=== PATIENT | female | born 1950 | race Caucasian/White ===

== ENCOUNTER → 2016-10-14 | Outpatient (CLI) | payer MEDICARE ==
--- NOTE | 2016-10-14 11:26 | REPMRS ---
Patient History The patient states she had a clinical breast exam in 09/2016. Patient had first child at age 35. Family history of ovarian cancer in maternal aunt at age 50 or over, pancreatic cancer in maternal aunt, breast cancer in paternal grandmother at age 50 or over, and ovarian cancer in paternal cousin at age 50 or over. Benign lumpectomy of the right breast, 1998. Digital Woman Screen Mammo: October 14, 2016 - Exam #: [id number] Bilateral CC and MLO view(s) were taken. Technologist: Ilene Lou, Technologist Prior study comparison: March 07, 2015, digital woman screen mammo performed at [facility]. March 28, 2014, digital woman screen mammo performed at [facility]. March 27, 2013, digital woman screen mammo performed at [facility]. FINDINGS: There are scattered fibroglandular densities. There is a moderate amount of residual fibroglandular tissue which is fairly symmetric. There is no interval development of dominant mass, architectural distortion, or clustered microcalcification typical of malignancy. There has been no change in the appearance of the mammogram from the prior studies. ASSESSMENT: BI-RADS/ACR category 1 mammogram. Negative. Recommendation Routine screening mammogram of both breasts in 1 year (for women over age 40). This mammogram was interpreted with the aid of an FDA-approved computer-aided dectection system. Electronically Signed By: Julio Dueñas MD 10/14/16 1126
== END ==
LOC: M WHC 10:04
PROVIDERS: ATTEND Nurse Practitioner Family
DX: Z01.419 Encounter for gynecological examination (general) (routine) without abnormal findings (principal); Z12.31 Encounter for screening mammogram for malignant neoplasm of breast; Z12.12 Encounter for screening for malignant neoplasm of rectum; Z92.89 Personal history of other medical treatment
CPT/HCPCS: 82270; G0101; G0202

== ENCOUNTER → 2017-01-06 | Outpatient (REF) | payer MEDICARE | LOC: M LAB REF 16:33 | PROVIDERS: ATTEND Physician Assistant | DX: R30.0 Dysuria (principal) ==

== ENCOUNTER → 2017-12-11 | Outpatient (REF) | payer MEDICARE ==
[2017-12-11 17:53] LABS: APPEARANCE, URINE CLEAR (CLEAR); BACTERIA, URINE AUTO 1+ (NEGATIVE); BILIRUBIN, URINE AUTO NEGATIVE (NEGATIVE); BLOOD, URINE BLOOD 2+ (NEGATIVE); COLOR, URINE STRAW (YELLOW); GLUCOSE, URINE (UA) AUTO NEGATIVE (NEGATIVE); KETONE, URINE AUTO NEGATIVE (NEGATIVE); LEUKOCYTE ESTERASE, URINE AUTO 3+ (NEGATIVE); NITRITE, URINE AUTO NEGATIVE (NEGATIVE); PROTEIN, URINE AUTO NEGATIVE (NEGATIVE); RBC, URINE AUTO 2 /HPF (0-3); SPECIFIC GRAVITY URINE AUTO 1.003 (1.002-1.035); SQUAMOUS EPITHELIAL CELL UR AU 0 /HPF (0-6); UROBILINOGEN, URINE AUTO 0.2 mg/dL (0.0-2.0); WBC, URINE AUTO 24 /HPF (0-3)
== END ==
LOC: M SMT 09:31
DX: N39.0 Urinary tract infection, site not specified (principal)
CPT/HCPCS: 81001

== ENCOUNTER 2017-12-13 14:14 | Emergency (ER) | payer MEDICARE ==
[2017-12-13 15:05] LABS: KETONE, URINE AUTO RFX NEGATIVE (NEGATIVE); LEUKOCYTE ESTERASE UR AUTO RFX 3+ (NEGATIVE); NITRITE, URINE AUTO RFX NEGATIVE (NEGATIVE); RBC, URINE AUTO RFX 2 /HPF (0-3); SPECIFIC GRAVITY UR AUTO RFX 1.006 (1.002-1.035); SQUAM EPITHELIAL CELL UR AURFX 1 /HPF (0-6); WBC, URINE AUTO RFX TNTC /HPF (0-3)
== END 2017-12-13 16:16 | disposition home or self-care (01) ==
LOC: M ED 14:14
DX: N30.20 Other chronic cystitis without hematuria (principal); J44.9 Chronic obstructive pulmonary disease, unspecified; Z87.440 Personal history of urinary (tract) infections; Z86.19 Personal history of other infectious and parasitic diseases; Z87.891 Personal history of nicotine dependence; Z88.2 Allergy status to sulfonamides; Z79.899 Other long term (current) drug therapy; Z79.51 Long term (current) use of inhaled steroids
CPT/HCPCS: 81001

== ENCOUNTER → 2017-12-27 | Outpatient (CLI) | payer MEDICARE ==
[2017-12-27 13:39] LABS: APPEARANCE, URINE CLEAR (CLEAR); BACTERIA, URINE AUTO NEGATIVE (NEGATIVE); BILIRUBIN, URINE AUTO NEGATIVE (NEGATIVE); BLOOD, URINE BLOOD NEGATIVE (NEGATIVE); COLOR, URINE YELLOW (YELLOW); GLUCOSE, URINE (UA) AUTO NEGATIVE (NEGATIVE); KETONE, URINE AUTO NEGATIVE (NEGATIVE); LEUKOCYTE ESTERASE, URINE AUTO NEGATIVE (NEGATIVE); MUCUS, URINE SMALL (NEGATIVE); NITRITE, URINE AUTO NEGATIVE (NEGATIVE); PROTEIN, URINE AUTO NEGATIVE (NEGATIVE); RBC, URINE AUTO 0 /HPF (0-3); SQUAMOUS EPITHELIAL CELL UR AU 0 /HPF (0-6); UROBILINOGEN, URINE AUTO 0.2 mg/dL (0.0-2.0); WBC, URINE AUTO 1 /HPF (0-3)
== END ==
LOC: M RAD 12:58
DX: N39.0 Urinary tract infection, site not specified (principal)
CPT/HCPCS: 76775

== ENCOUNTER → 2017-12-28 | Outpatient (CLI) | payer MEDICARE | LOC: M WHC 09:42 | DX: Z12.31 Encounter for screening mammogram for malignant neoplasm of breast (principal); Z01.419 Encounter for gynecological examination (general) (routine) without abnormal findings (principal); Z92.89 Personal history of other medical treatment; Z12.12 Encounter for screening for malignant neoplasm of rectum; Z80.3 Family history of malignant neoplasm of breast | CPT/HCPCS: 77067 ==

== ENCOUNTER → 2018-01-12 | Outpatient (REF) | payer MEDICARE ==
[2018-01-12 17:18] LABS: APPEARANCE, URINE HAZY (CLEAR); BACTERIA, URINE AUTO 3+ (NEGATIVE); BILIRUBIN, URINE AUTO NEGATIVE (NEGATIVE); BLOOD, URINE BLOOD NEGATIVE (NEGATIVE); COLOR, URINE YELLOW (YELLOW); GLUCOSE, URINE (UA) AUTO NEGATIVE (NEGATIVE); KETONE, URINE AUTO NEGATIVE (NEGATIVE); LEUKOCYTE ESTERASE, URINE AUTO 3+ (NEGATIVE); NITRITE, URINE AUTO NEGATIVE (NEGATIVE); PROTEIN, URINE AUTO NEGATIVE (NEGATIVE); RBC, URINE AUTO 5 /HPF (0-3); SPECIFIC GRAVITY URINE AUTO 1.014 (1.002-1.035); SQUAMOUS EPITHELIAL CELL UR AU 0 /HPF (0-6); UROBILINOGEN, URINE AUTO 0.2 mg/dL (0.0-2.0); WBC, URINE AUTO TNTC /HPF (0-3)
== END ==
LOC: M LABSMT 08:21
DX: N39.0 Urinary tract infection, site not specified (principal)
CPT/HCPCS: 81001

== ENCOUNTER → 2018-12-29 | Outpatient (CLI) | payer MEDICARE ==
[~2018-12-29] MED LIST: DULE200A INH; KEFL500C17 PO; LIPI10TA PO; TIOT18INH INH; URIB118C PO; VENTAER INH
--- NOTE | 2018-12-29 11:29 | REPMRS ---
Patient History The patient states she had a clinical breast exam in 12/2018. Patient had first child at age 35. Family history of breast cancer at age 50 or over in paternal grandmother, pancreatic cancer in maternal aunt, ovarian cancer at age 60 in paternal cousin. Benign lumpectomy of the right breast, 1998. No Hormone Replacement Therapy 3D TOMOSYNTHESIS WAS PERFORMED. The [facility] lifetime risk for breast cancer is 10.3%. Digital Woman Screen Mammo: December 29, 2018 - Exam #: [id number] Bilateral CC and MLO view(s) were taken. Technologist: Ilene Lou, Technologist Prior study comparison: December 28, 2017, bilateral digital woman screen mammo performed at [facility]. October 14, 2016, digital woman screen mammo performed at [facility]. FINDINGS: The breast tissue is heterogeneously dense. This may lower the sensitivity of mammography. There has been no change in the appearance of the mammogram from the prior studies. There is a moderate amount of residual fibroglandular tissue which is fairly symmetric. There is no interval development of dominant mass, areas of architectural distortion, or clustered microcalcification typical of malignancy. Assessment: BI-RADS/ACR category 1 mammogram. Negative Mammogram. Recommendation Routine screening mammogram in 1 year (for women over age 40). This mammogram was interpreted with the aid of an FDA-approved computer-aided dectection system. Electronically Signed By: Matthew Bermudez MD 12/29/18 1128
== END ==
LOC: M WHC 08:54
PROVIDERS: ATTEND Nurse Practitioner Family
DX: Z01.419 Encounter for gynecological examination (general) (routine) without abnormal findings (principal); Z12.31 Encounter for screening mammogram for malignant neoplasm of breast; Z86.018 Personal history of other benign neoplasm
CPT/HCPCS: 77063; 77067; G0101

== ENCOUNTER 2019-10-18 12:57 | Outpatient (CLI) | payer MEDICARE ==
[~2019-10-18] VITALS: Ht 170.2 cm; Wt 65.9 kg
[2019-10-18 13:15] VITALS: BP 119/62
[2019-10-18] MEDS ORDERED: OMALIZUMAB 150MG 1ML SYRINGE (XOLAIR) (J2357 PER 5MG) SQ ONE (14:00)
[2019-10-18 14:05] VITALS: BP 122/63
== END 2019-10-18 14:05 | disposition home or self-care (01) ==
LOC: M INFU 12:57
PROVIDERS: ATTEND Internal Medicine
DX: J45.50 Severe persistent asthma, uncomplicated (principal); Z88.8 Allergy status to other drugs, medicaments and biological substances
CPT/HCPCS: 96372; J2357

== ENCOUNTER 2019-11-15 08:48 | Outpatient (CLI) | payer MEDICARE ==
[~2019-11-15] VITALS: Ht 170.2 cm; Wt 65.9 kg
[2019-11-15 08:50] VITALS: BP 137/63
[2019-11-15] MEDS ORDERED: OMALIZUMAB 150MG 1ML SYRINGE (XOLAIR) (J2357 PER 5MG) SQ ONE (09:15)
[2019-11-15] MEDS ORDERED: CARD1TAB5 PO (09:30)
[2019-11-15] MEDS ORDERED: METH-855 PO (09:30)
[2019-11-15] MEDS ORDERED: IPRA0.00 NEB (09:30)
[2019-11-15 09:35] VITALS: BP 106/56
== END 2019-11-15 09:30 | disposition home or self-care (01) ==
LOC: M INFU 08:48
PROVIDERS: ATTEND Internal Medicine
DX: J45.50 Severe persistent asthma, uncomplicated (principal); Z88.8 Allergy status to other drugs, medicaments and biological substances
CPT/HCPCS: 96372; J2357